=== PATIENT | male | born 2000 | race Asian ===

== ENCOUNTER 2024-09-22 02:25 | Emergency (ER) | payer BC ==
[2024-09-22] MEDS ORDERED: Boostrix 0.5 ML (Tdap) VIAL (>/=7 yrs of age) ONE (02:34)
[2024-09-22 03:18] LABS: Acetaminophen Less than 10 mcg/mL (Less than 10); Alcohol 296.4 mg/dL (Less than 10); Salicylate Less than 8.0 mg/dL (Less than 8.0)
== END 2024-09-22 08:20 | disposition home or self-care (01) ==
LOC: ERS 02:25
DX: S01.312A Laceration without foreign body of left ear, initial encounter (principal); F10.129 Alcohol abuse with intoxication, unspecified; Z23 Encounter for immunization; W18.11XA Fall from or off toilet without subsequent striking against object, initial encounter; Y92.091 Bathroom in other non-institutional residence as the place of occurrence of the external cause; Y90.8 Blood alcohol level of 240 mg/100 ml or more
CPT/HCPCS: 12011; 36415; 70450; 72125; 80307; 90471; 90715